=== PATIENT | male | born 1975 | race Caucasian/White ===

== ENCOUNTER 2018-10-25 15:16 | Emergency (ER) | payer OTHER ==
[~2018-10-25] VITALS: Ht 172.7 cm; Wt 100.2 kg
[2018-10-25 15:21] VITALS: Ht 172.7 cm; Wt 100.2 kg
[2018-10-25 16:35] VITALS: BP 129/85
== END 2018-10-25 16:35 | disposition home or self-care (01) ==
LOC: ED 15:16
DX: M75.91 Shoulder lesion, unspecified, right shoulder (principal)